=== PATIENT | male | born 2005 | race Hispanic/Latino ===

== ENCOUNTER 2025-10-05 12:26 | Emergency (ER) | payer OTHER ==
[~2025-10-05] VITALS: Ht 170.2 cm; Wt 105.9 kg
[~2025-10-05 12:26] MED LIST: BACTRIM DS TAB1 EACH PO; CEPHALEXIN500 MG PO; NORCO 5-325 TA1 EACH PO
[2025-10-05] MEDS ORDERED: PERCOCET 5-3251 EACH PO (18:04)
[2025-10-05] MEDS ORDERED: ONDANSETRON ODT4 MG PO (18:04)
[2025-10-05] MEDS ORDERED: ONDANSETRON 4 MG TAB ODT SL ONE (18:15)
[2025-10-05] MEDS ORDERED: OXYCODONE/ACETAMINOPHEN 1 TAB HOME.PACK PO ONE (18:15)
[2025-10-05 18:37] VITALS: BP 112/64
== END 2025-10-05 18:38 | disposition home or self-care (01) ==
LOC: ED 12:26
DX: S92.354A Nondisplaced fracture of fifth metatarsal bone, right foot, initial encounter for closed fracture (principal); W18.30XA Fall on same level, unspecified, initial encounter; Y92.69 Other specified industrial and construction area as the place of occurrence of the external cause
CPT/HCPCS: 73630; 99283; A9270

== ENCOUNTER 2025-10-28 08:39 | Day surgery (SDC) | payer OTHER ==
[~2025-10-28] VITALS: Ht 172.7 cm; Wt 93.0 kg
[~2025-10-28 08:39] MED LIST changes: +CEFAZOLIN SODIUM 2 GM in SODIUM CHLORIDE 0.9% 100 ML IV SCH; +IBLOOD GLUCOSE TEST STRIP 1 EA TEST VI PRN; +LACTATED RINGER'S 1,000 ML IV SCH; +LIDOCAINE HCL 1% 5 ML SDV INJ ONE; +ONDANSETRON ODT4 MG PO; +PERCOCET 5-3251 EACH PO
[2025-10-28 09:14] LABS: BASOPHILS 0.2 % (0.2-1.2); BASOPHILS, ABSOLUTE 0.02 K/uL (0.01-0.08); EOSINOPHILS 1.9 % (0.8-7.0); EOSINOPHILS, ABSOLUTE 0.16 K/uL (0.04-0.54); LYMPHOCYTES 25.7 % (21.8-53.1); MCH 22.9 PG (25.7-32.2); MCHC 31.1 g/dL (32.3-36.5); MCV 73.6 fL (79.0-92.2); MONOCYTES 8.6 % (5.3-12.2); MONOCYTES, ABSOLUTE 0.72 K/uL (0.30-0.82); NEUTROPHILS 63.2 % (34.0-67.9); NEUTROPHILS, ABSOLUTE 5.30 K/uL (1.78-5.38); RBC 6.37 M/uL (4.63-6.08)
[2025-10-28 09:18] VITALS: BP 118/68
[2025-10-28] MEDS ORDERED: MIDAZOLAM HCL 2 MG/2 ML VIAL ONE (09:23)
[2025-10-28] MEDS ORDERED: fentaNYL citrate 100 MCG/2 ML VIAL ONE (09:23)
[2025-10-28] MEDS ORDERED: LIDOCAINE HCL 2% 5 ML SDV ONE (09:24)
[2025-10-28] MEDS ORDERED: Ropivacaine HCl 0.5% 30 ML VIAL ONE (09:24)
[2025-10-28] MEDS ORDERED: DEXAMETHASONE SOD PHOS 10 MG/ML VIAL ONE (09:25)
[2025-10-28] MEDS ORDERED: HYDROCODONE/ACETA 7.5/325 TAB PO PRN (11:00)
[2025-10-28] MEDS ORDERED: fentaNYL citrate 50 MCG/ML SDV IV PRN (11:45)
[2025-10-28] MEDS ORDERED: PROCHLORPERAZINE EDISYLATE 10 MG/2 ML VIAL IV PRN (11:45)
[2025-10-28] MEDS ORDERED: NALOXONE HCL 0.4 MG SYR IV PRN (11:45)
[2025-10-28] MEDS ORDERED: IBLOOD GLUCOSE TEST STRIP 1 EA TEST VI PRN (11:45)
[2025-10-28] MEDS ORDERED: HYDROmorphone HCL 1 MG/ML SYR IV PRN (11:45)
[2025-10-28] MEDS ORDERED: PERCOCET 5-3251 EACH PO (12:12)
--- NOTE | 2025-10-28 12:22 | NUR ---
10/28/25 1222 Sheets,Vivian 1206 PT ARRIVED TO PACU ON 6L VIA MASK. SMALL AMOUNT OF SNORING NOTED. RESP EVEN AND UNLABORED. 1215 PT WAKES TO TACTILE STIMULI AND O2 REMOVED. PT DENIES CONCERNS, NO PAIN OR NAUSEA. PT ABLE TO MOVE TOES BUT REPORTS NUMBNESS, PT EASILY FALL BACK TO SLEEP.
[2025-10-28 12:40] VITALS: BP 111/49
[2025-10-28 13:30] VITALS: BP 132/67
[2025-10-28] MEDS ORDERED: SEVOFLURANE 250 ML BTL INH ONE (14:10)
--- NOTE | 2025-10-28 14:21 | NUR ---
1250: PATIENT BACK IN DAY SURGERY ROOM FROM PACU. VS CHECKED. RATES PAIN 3/10 IN RIGHT FOOT. PATIENT STATES HE HAS URGE TO VOID. PATIENT ASSISTED OOB AND TO BATHROOM WITH USE OF CRUTCHES. VOID WITHOUT DIFFICULTY. PATIENT ASSISTED TO DRESS. GIVEN APPLE JUICE AND PUDDING. CALL LIGHT WITHIN REACH. 1330: VS CHECKED. PATIENT STATES READY TO GO HOME. 1400: DISCHARGE INSTRUCTIONS GIVEN TO PATIENT AND . ALL QUESTIONS ANSWERED. IV DC'D WNL. TIP INTACT. DRESSING APPLIED. 1405: PATIENT DISCHARGED TO HOME VIA WHEELCHAIR WITH .
--- NOTE | 2025-10-29 20:30 | OR ---
[facility] [address] [place], [place] [address] Signed DATE OF OPERATION: 10/28/2025 SURGEON: Juany Castellon MD PREOPERATIVE DIAGNOSIS: Fifth metacarpal fractures on to right. POSTOPERATIVE DIAGNOSIS: Fifth metacarpal fractures on to right. PROCEDURE PERFORMED: Open reduction and internal fixation, right fifth metacarpal. LICENSED BONDSMAN: None. ANESTHESIA: General. BLOOD LOSS: 25 mL. IMPLANTS: 4.0 x 54 Synthes headless screw. BRIEF HISTORY: Radames is a 20-year-old gentleman with pain in his foot after work accident. The radiographs showed a displaced zone two injury of the proximal fifth metatarsal. Risks and benefits of operative treatment discussed with him. He elected to proceed. DESCRIPTION OF PROCEDURE: Once consent was obtained, he was taken to the operating room. After adequate anesthesia, he was placed on the OR table with a hip bump. The leg was then prepped and draped in a standard sterile fashion and the fifth metatarsal was marked out. The 1 cm incision was made proximal to fifth metatarsal and carried through skin, subcutaneous tissue, bluntly down to the tip of the bone. Guide pin for the 4.0 set was then advanced from the tip of the fifth metatarsal proximally across the fracture engaging the body of the fifth metatarsal. This was then measured and drilled proximally. The 54 was then placed over the guide pin and advanced proximally under image intensifier guidance until it was fully seated and compressing the fracture. Excellent bone quality Electronically Signed By: JUANY CASTELLON MD 10/29/252029 PATIENT NAME: RADAMES MONTES DE OCA OPERATIVE REPORT DATE OF : 04 REPORT #: [id number] PHYSICIAN: JUANY CASTELLON MD PCP: NO PRIMARY CARE PHYSICIAN REPORT IS CONFIDENTIAL AND NOT TO BE RELEASED WITHOUT AUTHORIZATION [facility] [address] [place] [id number] Signed was encountered. The guide pin was removed. Final radiograph showed good reduction and good placement of the screw. The wound was copiously irrigated with normal saline, closed with henry and dressed with Allevyn and LAMAR wrap. He was placed back into his fracture boot, taken to the recovery room in satisfactory condition. All sponge, needle, and instrument counts were correct. Juany Castellon MD BA/MODL /[id number] Copies: ~ Electronically Signed By: JUANY CASTELLON MD 10/29/25 2030 PATIENT NAME: RADAMES MONTES DE OCA OPERATIVE REPORT DATE OF : 04 REPORT #: [id number] PHYSICIAN: JUANY CASTELLON MD PCP: NO PRIMARY CARE PHYSICIAN REPORT IS CONFIDENTIAL AND NOT TO BE RELEASED WITHOUT AUTHORIZATION
== END 2025-10-28 14:05 | disposition home or self-care (01) ==
LOC: DS 08:39
PROVIDERS: Nurse Anesthetist, Certified Registered; ATTEND Specialist
PROC: 0QSN04Z Reposition Right Metatarsal with Internal Fixation Device, Open Approach (ICD-10-PCS; principal; 2025-10-28 12:40)
DX: S92.351A Displaced fracture of fifth metatarsal bone, right foot, initial encounter for closed fracture (principal); X58.XXXA Exposure to other specified factors, initial encounter
CPT/HCPCS: 01480; 36415; 64445; 73620; 85025; C1713; J0688; J1100; J2003; J2250; J2795; J3010; J7121